=== PATIENT | male | born 1990 | race Hispanic/Latino ===

== ENCOUNTER 2020-08-05 02:55 | Inpatient (IN) | payer SELFPAY ==
[2020-08-05] MEDS ORDERED: ACETAMINOPHEN 500 MG TAB PO PRN (04:04)
[2020-08-05] MEDS ORDERED: MORPHINE 2 MG/ML SYR IV PRN (04:04)
[2020-08-05] MEDS ORDERED: ONDANSETRON 4 MG/2 ML VIAL IV PRN (04:04)
[2020-08-05] MEDS ORDERED: GUAIFENESIN/DM 5 ML UCUP PO PRN (04:15)
[2020-08-05] MEDS ORDERED: HYDRALAZINE HCL 20 MG/ML VIAL IV PRN (04:15)
--- NOTE | 2020-08-05 04:22 | P.HP ---
Certification for Inpatient With expected LOS: <2 Midnights Patient will require the following post-hospital care: None Practitioner: I am a practitioner with admitting privileges, knowledge of patient current condition, hospital course, and medical plan of care. Services: Services provided to patient in accordance with Admission requirements found in Title 42 Section 412.3 of the Code of Federal Regulations Patient History Date of Service: 08/05/20 Reason for admission: fever History of Present Illness: 30-year-old male with no past medical history except for tobacco use presented to [facility] emergency room with complaints of fever, chills, and body aches since the last 3 days. He was noted with temp of 103.3, he had a chest x-ray with finding of bilateral alveolar infiltrates worrisome for covid pneumonia. His rapid covid testing was reportedly negative. Patient was transferred here for further care. Patient is seen now. He admits to fever and chills with myalgia. He denies any nasal congestion. He denies any shortness of breath. He states he is beginning to feel better now. Of note his WBC at the transferring emergency room was greater than 18,000 with elevated D-dimer of 1700, was given IV Decadron as well as IV Rocephin and Zithromax. He denies any recent covid exposure Allergies No Known Allergies Allergy (Unverified 08/05/20 02:59) Home medications list reviewed: Yes - Past Medical/Surgical History Has patient received pneumonia vaccine in the past: No Diabetic: No Past Medical History: Patient denies medical history Past Surgical History: Patient denies surgical history - Family History Mother -: Diabetes - Social History Smoking Status: Light Tobacco smoker (1-9 cigarettes/day) Counseled patient to stop smoking for: more than 10 minutes Smoking therapy provided: Yes Patient receptive to therapy: Yes Alcohol use: No CD- Drugs: No Place of Residence: Home Review of Systems 10-point ROS is otherwise unremarkable General: Fever, Chills, Sweats, Weakness Eyes: Unremarkable ENT: Nose Discharge Respiratory: Cough, Dry, Unremarkable Cardiovascular: Unremarkable Gastrointestinal: Unremarkable Genitourinary: Unremarkable Integumentary: Unremarkable Neurological: Unremarkable Physical Examination - Physical Exam General: Alert, Oriented x3, Obese HEENT: Atraumatic, Normocephalic, PERRLA Neck: Supple, JVD not distended Respiratory: Clear to auscultation bilaterally, Normal air movement Cardiovascular: No edema, Normal pulses, Regular rate/rhythm, Normal S1 S2 Gastrointestinal: Normal bowel sounds, Soft and benign, Non-distended Musculoskeletal: No clubbing, No swelling Neurological: Normal gait, Normal speech, Normal strength at 5/5 x4 extr, Normal tone External genitalia: No edema, No lesions Assessment and Plan - Problems (Diagnosis) (1) Pneumonia due to COVID-19 virus Current Visit: Yes Status: Acute (2) Leucocytosis Current Visit: Yes Status: Acute Discharge Plan: Home Plan to discharge in: 48 Hours - Advance Directives Does patient have a Living Will: No Does patient have a Durable POA for Healthcare: No Physician Review: Patient Assessed, Agree with Above Assessment and Plan Physician Review Additional Text: # Presumed bilateral Covid -19 Pneumonia - pattern of chest x-ray suggestive of cold feet 19 infection -will start empirical Decadron -Given marked leukocytosis, will do empirical Rocephin for now -gentle IV fluid since recurrent fever -Follow repeat rapid Covid 19 testing as well as confirmatory test if rapid neg ative -Monitor for resolution of fever -place in isolation for now # Leucoytosis - may be due to viral pneumonia , follow trend # Obesity -weight loss advised # Tobacco use - nicotine patch # Dispo - more than 48 hrs Time Spent Managing Pts Care (In Minutes): 60
[2020-08-05 04:38] VITALS: BMI 49.4
[2020-08-05] MEDS: NA CHLORIDE 0.9% 1,000 ML IV SCH ×2 (05:20→16:29)
[2020-08-05 05:25] LABS: Absolute Lymphocytes (CBC) 1.1 K/uL (0.7-4.9); Basophils % 0.4 % (0-1.3); Hematocrit 38.4 % (39.6-49.0); Lymphocytes % 4.8 % (15.3-44.8); MPV 9.3 fL (7.6-11.3); RBC Red Blood Cell Count 4.43 M/uL (4.33-5.43)
[2020-08-05 06:05] LABS: ALT/SGPT 122 U/L (12-78); AST/SGOT 40 U/L (15-37); Albumin 2.9 g/dL (3.4-5.0); Alkaline Phosphatase 87 U/L (45-117); BUN Blood Urea Nitrogen 7 mg/dL (7-18); Bicarbonate 24 mmol/L (21-32); Ferritin 267.9 ng/mL (26-388); Glucose Level 144 mg/dL (74-106); Potassium 4.3 mmol/L (3.5-5.1); Sodium Level 135 mmol/L (136-145)
[2020-08-05 07:13] LABS: Blood Morphology Comment NOT SEEN (NOT SEEN); Platelet Estimate ADEQ
[2020-08-05] MEDS: ALBUTEROL 2.5 MG/3 ML NEB SOL NEB PRN (08:15)
[2020-08-05] MEDS ORDERED: Meropenem 1000 MG/VIAL IV SCH (09:00)
[2020-08-05] MEDS ORDERED: CEFTRIAXONE 1 GM/NS 50 ML 1 GM/50 ML BAG IV SCH (09:00)
[2020-08-05] MEDS ORDERED: INFLUENZA VACCINE (for 3y+) 0.5 ML DOSE IMVAC ONE (10:00)
[2020-08-05] MEDS: Meropenem 1,000 MG in NA CHLORIDE 0.9% 100 ML IV SCH ×2 (10:13→16:30)
[2020-08-05] MEDS: NICOTINE 14 MG/PAT TD SCH (10:14)
[2020-08-05] MEDS: ZINC SULFATE 220 MG CAP PO SCH (10:14)
[2020-08-05] MEDS: ENOXAPARIN 40 MG/0.4 ML SQ SCH (10:14)
[2020-08-05] MEDS: dexAMETHasone 4 MG TAB PO SCH (10:21)
[2020-08-06] MEDS: NA CHLORIDE 0.9% 1,000 ML IV SCH (00:18)
[2020-08-06] MEDS: Meropenem 1,000 MG in NA CHLORIDE 0.9% 100 ML IV SCH ×2 (00:18→08:46)
[2020-08-06 00:43] VITALS: O2SAT 94
[2020-08-06 06:49] LABS: ALT/SGPT 134 U/L (12-78); AST/SGOT 50 U/L (15-37); Albumin 2.6 g/dL (3.4-5.0); Alkaline Phosphatase 85 U/L (45-117); BUN Blood Urea Nitrogen 11 mg/dL (7-18); Bicarbonate 26 mmol/L (21-32); Bilirubin Total 0.4 mg/dL (0.2-1.0); Glucose Level 125 mg/dL (74-106); Potassium 4.3 mmol/L (3.5-5.1); Protein, Total 7.7 g/dL (6.4-8.2); Sodium Level 141 mmol/L (136-145)
[2020-08-06] MEDS: ALBUTEROL 2.5 MG/3 ML NEB SOL NEB PRN (07:30)
--- NOTE | 2020-08-06 08:32 | P.DS ---
Admission Date: 08/05/20 Discharge Date: 08/06/20 Disposition: ROUTINE DISCHARGE Discharge Condition: GOOD Reason for Admission: fever Brief History of Present Illness: Please refer to H&P Hospital Course: A 30-year-old female with morbid obesity was admitted with the respiratory symptoms concerning COVID 19. He tested negative for COVID 19 with at least 2 separate tests. His on the room air oxygen saturation of 94%. I will discharge him on a short course of levofloxacin due to concern for community-acquired pneumonia. Vital Signs/Physical Exam: Temp Pulse Resp BP Pulse Ox 97.7 F 94 H 18 113/54 L 94 08/06/20 04:00 08/06/20 04:00 08/06/20 04:00 08/06/20 04:00 08/06/20 04:00 General: In no apparent distress, Cooperative, Obese HEENT: Atraumatic, Normocephalic, EOMI Neck: Supple Respiratory: Clear to auscultation bilaterally, Normal air movement Cardiovascular: No edema, Normal pulses, Regular rate/rhythm, Normal S1 S2 Musculoskeletal: No clubbing, No swelling, No contractures, No erythema, No tenderness, No warmth Neurological: Normal speech, Sensation intact, Normal affect Laboratory Data at Discharge: WBC 22.6 K/uL (4.3-10.9) H* 08/05/20 05:12 Hgb 13.0 g/dL (13.6-17.9) L 08/05/20 05:12 Hct 38.4 % (39.6-49.0) L 08/05/20 05:12 Plt Count 313 K/uL (152-406) 08/05/20 05:12 Sodium 141 mmol/L (136-145) 08/06/20 06:15 Potassium 4.3 mmol/L (3.5-5.1) 08/06/20 06:15 BUN 11 mg/dL (7-18) 08/06/20 06:15 Creatinine 0.66 mg/dL (0.55-1.3) 08/06/20 06:15 Glucose 125 mg/dL (74-106) H 08/06/20 06:15 Total Bilirubin 0.4 mg/dL (0.2-1.0) 08/06/20 06:15 AST 50 U/L (15-37) H 08/06/20 06:15 ALT 134 U/L (12-78) H 08/06/20 06:15 Alkaline Phosphatase 85 U/L (45-117) 08/06/20 06:15 Home Medications: levoFLOXacin [Levaquin*] 750 mg PO DAILY #5 tab 08/06/20 New Medications: levoFLOXacin [Levaquin*] 750 mg PO DAILY #5 tab Diet: Regular
[2020-08-06] MEDS: dexAMETHasone 4 MG TAB PO SCH (08:46)
[2020-08-06] MEDS: ZINC SULFATE 220 MG CAP PO SCH (08:50)
[2020-08-06] MEDS: NICOTINE 14 MG/PAT TD SCH (08:51)
[2020-08-06] MEDS: ENOXAPARIN 40 MG/0.4 ML SQ SCH (08:52)
[2020-08-06 09:31] VITALS: BP 119/58; TEMP 97.6
== END 2020-08-06 11:48 | disposition home or self-care (01) | DRG 194 ==
LOC: 3RD-ICU 02:55 → 2ND 04:11
PROVIDERS: ADMIT Internal Medicine; ATTEND Internal Medicine
DX: J18.9 Pneumonia, unspecified organism (principal); Z68.42 Body mass index [BMI] 45.0-49.9, adult; E66.01 Morbid (severe) obesity due to excess calories; F17.210 Nicotine dependence, cigarettes, uncomplicated; D72.829 Elevated white blood cell count, unspecified; Z79.899 Other long term (current) drug therapy; Z20.828 Contact with and (suspected) exposure to other viral communicable diseases
CPT/HCPCS: 36415; 80053; 82728; 83615; 85025; 86140; 94640; J0696; J1650; J2185; J7030; J8540; U0002; U0003